=== PATIENT | male | born 1945 | race Caucasian/White ===

== ENCOUNTER 2019-12-08 13:29 | Emergency (ER) | payer OTHER ==
[~2019-12-08] VITALS: Ht 190.5 cm; Wt 107.0 kg
[2019-12-08] MEDS ORDERED: PROSCAR 5MG TABL5 MG PO (13:42)
[2019-12-08] MEDS ORDERED: DRIZALMA SPRINK30 MG PO (13:42)
[2019-12-08] MEDS ORDERED: CARVEDILOL3.125 MG PO (13:42)
[2019-12-08] MEDS ORDERED: NORCO 5-325 TA1 EAC2 PO (14:23)
[2019-12-08 14:42] VITALS: BP 106/71
== END 2019-12-08 14:42 | disposition home or self-care (01) ==
LOC: M.ERS 13:29
DX: S22.41XA Multiple fractures of ribs, right side, initial encounter for closed fracture (principal); I10 Essential (primary) hypertension; X50.9XXA Other and unspecified overexertion or strenuous movements or postures, initial encounter; Y93.89 Activity, other specified; Y92.89 Other specified places as the place of occurrence of the external cause; Y99.8 Other external cause status